=== PATIENT | female | born 1970 | race Caucasian/White ===

== ENCOUNTER 2024-11-30 05:17 | Inpatient (IN) | payer BC, SELFPAY ==
[2024-11-29 22:47] VITALS: BP 117/83
[2024-11-29 23:49] VITALS: BP 138/79
[2024-11-30] VITALS (13 sets, daily range): BP systolic 98–112; BP diastolic 59–72; BMI 30.1
[2024-11-30 00:04] LABS: % Basophils 0.3 % (0-2); % Eosinophils 0.3 % (0-6); % Lymphocytes 16.2 % (20.5-51.1); % Neutrophils 74.2 % (42.2-75.2); Absolute Lymphocytes 0.6 10^3/uL (1.2-3.4); Absolute Monocytes 0.3 10^3/uL (0.1-0.6); Absolute Neutrophils 2.7 10^3/uL (1.4-6.5); Hematocrit 38.5 % (37.0-47.0); Hemoglobin 13.3 g/dL (12.0-16.0); Mean Corp Hgb Conc. 34.5 g/dL (33.0-37.0); Mean Corpuscular Hgb 31.9 pg (27.0-31.0); Mean Corpuscular Volume 92.3 fL (81.0-99.0); Mean Platelet Volume 10.9 fL (7.4-10.4); Nucleated Red Blood Cells % 0 %; Platelet Count 119 10^3/uL (130-400); Red Blood Cell Count 4.17 10^6/uL (4.20-5.40); Red Cell Dist. Width 12.2 % (11.5-14.5); White Blood Cell Count 3.6 10^3/uL (4.8-10.8)
[2024-11-30] MEDS: ZOFRAN 4 MG IV ×3 (00:10→08:08)
[2024-11-30] MEDS: TORADOL 15 MG IV ×3 (00:10→09:42)
[2024-11-30 00:33] LABS: ALT (SGPT) 23 U/L (0-35); AST (SGOT) 37 U/L (14-36); Albumin 4.2 g/dl (3.5-5.0); Alkaline Phosphatase 117 U/L (38-126); Blood Urea Nitrogen 12 mg/dl (7-17); Calcium 9.8 mg/dl (8.4-10.2); Carbon Dioxide 18 mmol/L (22-30); Chloride 102 mmol/L (98-107); Glucose 157 mg/dl (70-99); Lipase 100 U/L (23-300); Potassium 3.8 mmol/L (3.5-5.1); Sodium 132 mmol/L (135-145); Total Bilirubin 0.6 mg/dl (0.2-1.3); Total Protein 6.9 g/dl (6.3-8.2); eGFR > 60.00
--- NOTE | 2024-11-30 01:47 | ED.GENMED ---
History of Present Illness
<David Guerra, DO - Last Filed: 11/30/24 02:56>
General
Chief Complaint: Abdominal Pain
Source: patient and spouse
Exam Limitations: none
Time Seen by Provider: 11/29/24 23:46
Nursing documentation reviewed up to this point in time: agreed with
History of Present Illness
History of Present Illness:
54-year-old female presents emergency room due to sudden onset of right abdominal pain and vomiting. She denies diarrhea. She states her family has the flu. She did not take any medications for this.
Past History
<David Guerra, DO - Last Filed: 11/30/24 02:56>
Past History
ED Past Medical History: Other (Pacemaker, congenital AV node)
ED Past Surgical History: Cardiac (Multiple cardiac ablations, pacemaker)
Social History
Tobacco: Non-smoker
Alcohol: None
Drug: None
Personal:
Living: with family
Employment: Employed
Review of Systems
<David Guerra, DO - Last Filed: 11/30/24 02:56>
Review of Systems
Allergies reviewed?: Yes
All Other Systems: Not applicable
Constitutional: Reports no symptoms
EENT: Reports no symptoms
Respiratory: Reports no symptoms
Cardiac: Reports no symptoms
ABD/GI: Reports abdominal pain, nausea and vomiting
: Reports no symptoms
Musculoskeletal: Reports no symptoms
Skin: Reports no symptoms
Neurological: Reports no symptoms
Endocrine: Reports no symptoms
Hematologic/Lymphatic: Reports no symptoms
Psychiatric: Reports no symptoms
Phy Exam
<David Guerra, DO - Last Filed: 11/30/24 02:56>
Physical Exam
Physical Exam:
Physical Exam
General: Afebrile, appears uncomfortable
Neck: supple. no meningeal signs. normal posterior pharynx
Heart: s1/s2 regular rate and rhythm, no murmur. equal radial
pulses.
HEENT: Pupils equal round reactive to light, EOMI
Lungs: no acute respiratory distress. clear bilaterally
Abdomen: normal bowel sounds. not tender. no CVAT
Neuro: alert and oriented. no focal neurological deficits cranial nerves II through XII intact
Skin: no rash
Psychiatric: well kept. interactive and cooperative
Extremities: no edema. no calf tenderness. negative homans. good distal pulses
Course
<David Guerra, DO - Last Filed: 11/30/24 02:56>
Orders/Labs/Results
Orders:
Orders
11/29/24 23:49
Complete Blood Count/With Diff Urgent
Comprehensive Metabolic Panel Urgent
Lipase Urgent
11/30/24 00:04
Ketorolac [Toradol] 15 mg IV NOW STA
11/30/24 00:05
CT Abd/pel Without Iv Or Oral Urgent
Comment:
Reason For Exam: right flank pain
Ondansetron Injectable [Zofran] 4 mg IV NOW STA
11/30/24 02:28
Ketorolac [Toradol] 15 mg .ROUTE .STK-MED ONE
11/30/24 02:29
Ketorolac [Toradol] 15 mg IV NOW STA
11/30/24 02:51
Morphine Sulfate 4 mg .ROUTE .STK-MED ONE
Ondansetron Injectable [Zofran] 4 mg .ROUTE .STK-MED ONE
Ondansetron Injectable [Zofran] 4 mg IV NOW STA
11/30/24 02:52
Morphine Sulfate 4 mg IV NOW STA
Morphine Sulfate 4 mg IV NOW STA
Ondansetron Injectable [Zofran] 4 mg IV NOW STA
11/30/24 02:54
Urinalysis Reflex To Culture Urgent
Date Specimen was Collected: 11/30/24
Time Specimen was Collected: 00:30
Urine Microscopic Reflex Cult Urgent
Urine Culture Urgent
SHAD Source: U
Specimen Description:
Date Specimen was Collected: 11/30/24
Time Specimen was Collected: 00:30
11/30/24 04:00
Flush (0.9% Sodium Chloride) [Flush (Nss)] See Dose Instructions IV PER PROTOCOL
11/30/24 04:46
Admit/Transfer Patient As Directed
Co-Sign Provider:
Level of Care: Inpatient admission
Assign to:: Medical/Surgical
Physician / Group: hospitalist
Diagnosis: ureterolithiasis
Reason for Hospitalization: ureterolithiasis, 4 stones in distal right ureter
Expected length of stay greater than two midnights?: Yes
ELOS- Estimated Length of Stay in days: 2
I certify the patient meets the requirements for IP care: Yes
11/30/24 04:47
Code Status As Directed
Resuscitation Status: Full Code
PRN Pain Medication Management As Directed
May give lesser potent ordered pain med per pt: Yes
preference::
Protocol:: Medication orders for pain may be administered in a
manner that supports deferring to patient preference
when the pt is:
- Requesting an ordered lesser potent pain medication.
Least to most potent pain medications are defined
as: acetaminophen < NSAID < tramadol < opioids
(morphine, oxycodone, hydromorphone).
- Requesting a lesser dose of the same medication IF
ORDERED.
- Requesting a less intrusive route of administration
if both routes are prescribed by the provider (PO <
IV).
11/30/24 05:27
0.9% Sodium Chloride 1000 ml [Nss] 1,000 ml IV 125 mls/hr
Acetaminophen [Tylenol] 650 mg PO Q4HPRN PRN
Bisacodyl [Dulcolax] 10 mg RECTAL [id number] PRN
Docusate W/Senna [Senokot-S] 1 tablet PO BIDPRN PRN
Ketorolac [Toradol] 15 mg IV Q6HPRN PRN
Morphine Sulfate 2 mg IV Q4HPRN PRN
Ondansetron Injectable [Zofran] 4 mg IV Q6HPRN PRN
Polyethylene Glycol Powder [Miralax] 17 grams PO DAILYPRN PRN
11/30/24 05:27
UROLOGY CONSULT Routine
Consulting Provider: Kishore Calix
Was physician already notified: Yes
Comment: right ureterolithiasis
Activity As Directed
Activity Level: With Assistance
Pneumatic Compression Sleeves As Directed
Type: Knee high
Strain Urine As Directed
Vital Signs As Directed
Frequency: Per unit guidelines
DX Deep Vein Thrombosis Video Routine
11/30/24 Breakfast
NPO
Allow oral meds: Yes
Allow clear liquids: Sips of Clears
NPO with Ice Chips: Yes
11/30/24 06:29
Basic Metabolic Panel IN AM
11/30/24 08:00
Spironolactone [Aldactone] 12.5 mg PO DAILY
11/30/24 22:00
Duloxetine Delayed Release [Cymbalta Delayed Release] 20 mg PO HS
Abnormal Lab Results
11/29/24 11/30/24
23:49 02:54
WBC 3.6 L 10^3/uL
(4.8-10.8)
RBC 4.17 L 10^6/uL
(4.20-5.40)
MCH 31.9 H pg
(27.0-31.0)
Plt Count 119 L 10^3/uL
(130-400)
MPV 10.9 H fL
(7.4-10.4)
Absolute Lymphs (auto) 0.6 L 10^3/uL
(1.2-3.4)
Lymphocytes % 16.2 L %
(20.5-51.1)
Sodium 132 L mmol/L
(135-145)
Carbon Dioxide 18 L mmol/L
(22-30)
Glucose 157 H mg/dl
(70-99)
AST 37 H U/L
(14-36)
Urine Ketones 3+ A
(Negative)
Ur Occult Blood Reflex 2+ A
(Negative)
Leukocyte Esterase Rfl 3+ A
(Negative)
Urine RBC 3-6 A /HPF
(0-2)
Urine WBC (Reflex) 60-70 A /HPF
(0-5)
Urine Bacteria (Reflex) Moderate A
(Negative)
Urine Albumin (Reflex) 2+ A
(Neg - Trace)
11/29/24 23:49
11/29/24 23:49
Vital Signs
Initial and Last Documented VS:
Initial Vital Signs
Temp Pulse Resp BP Pulse Ox
97.7 F 85 30 117/83 99
11/29/24 22:47 11/29/24 22:47 11/29/24 22:47 11/29/24 22:47 11/29/24 22:47
Last Documented Vital Signs
Temp Pulse Resp BP Pulse Ox
97.7 F 85 30 110/59 96
11/29/24 22:47 11/29/24 22:47 11/29/24 22:47 11/30/24 05:00 11/30/24 05:15
Elmiralt;Marlys Vu, DO - Last Filed: 11/30/24 06:59>
Orders/Labs/Results
Orders:
Orders
11/29/24 23:49
Complete Blood Count/With Diff Urgent
Comprehensive Metabolic Panel Urgent
Lipase Urgent
11/30/24 00:04
Ketorolac [Toradol] 15 mg IV NOW STA
11/30/24 00:05
CT Abd/pel Without Iv Or Oral Urgent
Comment:
Reason For Exam: right flank pain
Ondansetron Injectable [Zofran] 4 mg IV NOW STA
11/30/24 02:28
Ketorolac [Toradol] 15 mg .ROUTE .STK-MED ONE
11/30/24 02:29
Ketorolac [Toradol] 15 mg IV NOW STA
11/30/24 02:51
Morphine Sulfate 4 mg .ROUTE .STK-MED ONE
Ondansetron Injectable [Zofran] 4 mg .ROUTE .STK-MED ONE
Ondansetron Injectable [Zofran] 4 mg IV NOW STA
11/30/24 02:52
Morphine Sulfate 4 mg IV NOW STA
Morphine Sulfate 4 mg IV NOW STA
Ondansetron Injectable [Zofran] 4 mg IV NOW STA
11/30/24 02:54
Urinalysis Reflex To Culture Urgent
Date Specimen was Collected: 11/30/24
Time Specimen was Collected: 00:30
Urine Microscopic Reflex Cult Urgent
Urine Culture Urgent
SHAD Source: U
Specimen Description:
Date Specimen was Collected: 11/30/24
Time Specimen was Collected: 00:30
11/30/24 04:00
Flush (0.9% Sodium Chloride) [Flush (Nss)] See Dose Instructions IV PER PROTOCOL
11/30/24 04:46
Admit/Transfer Patient As Directed
Co-Sign Provider:
Level of Care: Inpatient admission
Assign to:: Medical/Surgical
Physician / Group: hospitalist
Diagnosis: ureterolithiasis
Reason for Hospitalization: ureterolithiasis, 4 stones in distal right ureter
Expected length of stay greater than two midnights?: Yes
ELOS- Estimated Length of Stay in days: 2
I certify the patient meets the requirements for IP care: Yes
11/30/24 04:47
Code Status As Directed
Resuscitation Status: Full Code
PRN Pain Medication Management As Directed
May give lesser potent ordered pain med per pt: Yes
preference::
Protocol:: Medication orders for pain may be administered in a
manner that supports deferring to patient preference
when the pt is:
- Requesting an ordered lesser potent pain medication.
Least to most potent pain medications are defined
as: acetaminophen < NSAID < tramadol < opioids
(morphine, oxycodone, hydromorphone).
- Requesting a lesser dose of the same medication IF
ORDERED.
- Requesting a less intrusive route of administration
if both routes are prescribed by the provider (PO <
IV).
11/30/24 05:27
0.9% Sodium Chloride 1000 ml [Nss] 1,000 ml IV 125 mls/hr
Acetaminophen [Tylenol] 650 mg PO Q4HPRN PRN
Bisacodyl [Dulcolax] 10 mg RECTAL [id number] PRN
Docusate W/Senna [Senokot-S] 1 tablet PO BIDPRN PRN
Ketorolac [Toradol] 15 mg IV Q6HPRN PRN
Morphine Sulfate 2 mg IV Q4HPRN PRN
Ondansetron Injectable [Zofran] 4 mg IV Q6HPRN PRN
Polyethylene Glycol Powder [Miralax] 17 grams PO DAILYPRN PRN
11/30/24 05:27
UROLOGY CONSULT Routine
Consulting Provider: Kishore Calix
Was physician already notified: Yes
Comment: right ureterolithiasis
Activity As Directed
Activity Level: With Assistance
Pneumatic Compression Sleeves As Directed
Type: Knee high
Strain Urine As Directed
Vital Signs As Directed
Frequency: Per unit guidelines
DX Deep Vein Thrombosis Video Routine
11/30/24 Breakfast
NPO
Allow oral meds: Yes
Allow clear liquids: Sips of Clears
NPO with Ice Chips: Yes
11/30/24 06:29
Basic Metabolic Panel IN AM
11/30/24 08:00
Spironolactone [Aldactone] 12.5 mg PO DAILY
11/30/24 22:00
Duloxetine Delayed Release [Cymbalta Delayed Release] 20 mg PO HS
Abnormal Lab Results
11/29/24 11/30/24
23:49 02:54
WBC 3.6 L 10^3/uL
(4.8-10.8)
RBC 4.17 L 10^6/uL
(4.20-5.40)
MCH 31.9 H pg
(27.0-31.0)
Plt Count 119 L 10^3/uL
(130-400)
MPV 10.9 H fL
(7.4-10.4)
Absolute Lymphs (auto) 0.6 L 10^3/uL
(1.2-3.4)
Lymphocytes % 16.2 L %
(20.5-51.1)
Sodium 132 L mmol/L
(135-145)
Carbon Dioxide 18 L mmol/L
(22-30)
Glucose 157 H mg/dl
(70-99)
AST 37 H U/L
(14-36)
Urine Ketones 3+ A
(Negative)
Ur Occult Blood Reflex 2+ A
(Negative)
Leukocyte Esterase Rfl 3+ A
(Negative)
Urine RBC 3-6 A /HPF
(0-2)
Urine WBC (Reflex) 60-70 A /HPF
(0-5)
Urine Bacteria (Reflex) Moderate A
(Negative)
Urine Albumin (Reflex) 2+ A
(Neg - Trace)
11/29/24 23:49
11/29/24 23:49
Vital Signs
Initial and Last Documented VS:
Initial Vital Signs
Temp Pulse Resp BP Pulse Ox
97.7 F 85 30 117/83 99
11/29/24 22:47 11/29/24 22:47 11/29/24 22:47 11/29/24 22:47 11/29/24 22:47
Last Documented Vital Signs
Temp Pulse Resp BP Pulse Ox
97.7 F 85 30 110/59 96
11/29/24 22:47 11/29/24 22:47 11/29/24 22:47 11/30/24 05:00 11/30/24 05:15
<DO Tian Peck Last Filed: 11/30/24 02:56>
MDM/Problems Addressed
Differential Diagnosis Includes:
UTI, kidney stones
MDM/Problems Addressed:
54-year-old female with right distal ureteral calculi. [address] scan. Intractable pain despite multiple doses of Toradol and morphine. Admit to hospitalist with urology consult.
<DO Tian Peck Last Filed: 11/30/24 02:56>
*Radiology
Radiology exam reviewed: radiology read reviewed (CT abdomen pelvis 4stones in right distal ureter)
*Pulse Oximetry
Patient hypoxic: no
*Critical Care Note
Total Time (30-74mins, 75-104mins- exclusive of procedures): Not Applicable
<DO Tina Peck Last Filed: 11/30/24 02:56>
Patient Management
Social determinants of health affecting care: Living situation
Discussion with other providers: Hospitalist and Nurse Rn Bsn (Urology)
Escalation/DeEscalation of care consider admission/obs:
Admit indicated
<Marlys R. Vu, DO - Last Filed: 11/30/24 06:59>
Update Note
Update Note:
06:45
Urinalysis concerning for UTI showing moderate bacteria, 60-70 WBCs. This is however a contaminated specimen with greater than 30 squamous epithelial cells. Urine culture is pending.
It is reassuring that white blood cell count is normal and patient has been afebrile. However with ureteric stone, concern for potential infected stone thus will initiate IV antibiotics.
History of anaphylaxis with penicillins thus will initiate IV Levaquin.
ED Attending Note
<David Guerra, DO - Last Filed: 11/30/24 02:56>
-
Portions of this chart may have been created with voice recognition software.� Occasional wrong word or��sound alike� substitutions may have occurred due to the inherent limitations of voice recognition software.
Discharge Plan
Departure
Patient Disposition: Admit
Date of Disposition: 11/30/24
Time of Disposition: 02:55
Admit to: Med/Surg
Presentation/result/management discussed w/ accepting MD/DO: Hospitalist
Patient with high blood pressure during this ER visit?: No
Condition: Fair
Discharge Problem:
Calculus of right ureter
Interventions
Interventions:
*Risk Screen - Suicide Last Done: 11/30/24 00:31
*Neglect/Abuse Screening Last Done: 11/30/24 00:31
ED- Fall Risk Assessment Last Done: 11/30/24 00:31
QR-Cssjox-Oearcneany Assessment Last Done: 11/30/24 00:31
--- NOTE | 2024-11-30 01:48 | EDRN ---
Patient is sleeping when observed, call santana in reach.
[2024-11-30] MEDS: MORPHINE SULFATE 4 MG IV ×2 (02:52→05:35)
[2024-11-30 03:29] LABS: Urine Albumin 2+ (Neg - Trace); Urine Bilirubin Negative (Negative); Urine Character Slightly Cloudy (Clear); Urine Color Yellow; Urine Glucose Negative (Negative); Urine Ketone 3+ (Negative); Urine Leukocyte 3+ (Negative); Urine Nitrite Negative (Negative); Urine Occult Blood 2+ (Negative); Urine Urobilinogen Negative (Neg - 1+)
--- NOTE | 2024-11-30 04:50 | HPS.HSE ---
Family Physician
-
Family Physician: Karena Haywood MD
Chief Complaint
-
Flank and abdominal pain
History of Present Illness
This is a 54-year-old with past medical history significant for restless leg syndrome, chronic acne presenting to the emergency department with acute onset of flank pain.
Patient reported that she was trying to sleep when she arose with severe right-sided flank pain radiating to the right lower quadrant and inguinal region. She had a nonbilious and nonbloody emesis. The pain was not subsiding at all and she said
come to the emergency department for evaluation. She denied having any fevers or chills. She denied any recent episode of urinary tract symptoms. She denies any recent urinary instrumentation. Patient denies any prior history of kidney stones.
She denies hematuria. She denies any urological congenital abnormalities.
In the emergency department she was afebrile, blood pressure was 110/71 with pulse of 85. CBC was unremarkable with a normal white count normal hemoglobin and normal platelets. Electrolytes BUN/creatinine were all within the normal range. UA had
positive leukocyte esterase negative nitrites no bacteria with WBCs pending.
Medical History
Past Medical History
Past Medical History: Reports Other (Restless leg syndrome)
Past Surgical History: Reports None
Social History
Tobacco: Non-smoker
Alcohol: Former
Drug: None
Personal:
Living: With Family
Employment: Employed
Family History
Family History: Not pertinent
Allergies / Home Medications
Allergies reflects when Allergies were last updated in [facility].
Home Medications with original date entered in [facility]
Allergy/Medication List:
Allergies
Allergy/AdvReac Type Severity Reaction Status Date / Time
Penicillins Allergy Severe Anaphylaxis Verified 11/29/24 22:50
latex Allergy Unknown Rash Verified 11/29/24 22:50
Home Medications
nirmatrelvir 300 mg (150 mg x2)-ritonavir 100 mg tablet,dose pack (Paxlovid) See Rx Instructions PO .COMPLEX #30 ea 10/07/23
Spironolactone 12.5 mg tablet, 12.5 mg p.o. daily
Duloxetine 30 mg tablet, 30 mg p.o. at bedtime
Review of Systems
-
Constitutional: Reports No Symptoms
EENT: Reports No Symptoms
Respiratory: Reports No Symptoms
Cardiac: Reports No Symptoms
Abdomen/GI: Reports Abdominal Pain
: Reports Flank Pain
Musculoskeletal: Reports No Symptoms
Skin: Reports No Symptoms
Neurological: Reports No Symptoms
Endocrine: Reports No Symptoms
Hematologic/Lymphatic: Reports No Symptoms
Psych: Reports No Symptoms
Physical Exam
Vital Signs
Vital Signs
Temp Pulse Resp BP Pulse Ox
97.7 F 85 30 110/71 91
11/29/24 22:47 11/29/24 22:47 11/29/24 22:47 11/30/24 03:00 11/30/24 03:15
Physical Exam
General: Well Developed, Well Nourished and No Apparent Distress
HEENT: NormoCephalic, Anicteric, Moist mucous membranes and Atraumatic
Respiratory: Clear
Cardiac: S1/S2 and Regular Rhythm
Breast: Deferred by me
GI: Soft, Non Tender, Non Distended and Normal Bowel Sounds
Genito-urinary: Deferred by me
Musculoskeletal: No Clubbing, No Cyanosis and No Edema
Skin: Warm and Dry
Neuro: AO x 3 and Nonfocal/grossly intact
Hematologic/Lymphatic: No Lymphadenopathy
Psych: Calm
Laboratory Results
-
11/29/24 23:49
11/29/24 23:49
Laboratory Results
Total Bilirubin 0.6 mg/dl (0.2-1.3) 11/29/24 23:49
AST 37 U/L (14-36) H 11/29/24 23:49
ALT 23 U/L (0-35) 11/29/24 23:49
Alkaline Phosphatase 117 U/L (38-126) 11/29/24 23:49
Lipase 100 U/L (23-300) 11/29/24 23:49
Data Reviewed
-
CT Scan: Report Reviewed by me
Lab Data: Labs Reviewed by me
Old Records: Reviewed
Impression/Plan
-
IMPRESSION:
54-year-old with right-sided ureterolithiasis.
PLAN:
Kidney stone - there are 4 3mm stones in the distal right ureter. No hydronephrosis. No signs of acute infection. Renal function is normal. Pain.
- admit to med surg
- NPO for now
- IV fluids, strain urine and tamsulosin
- pain control with toradol and morphine prn
- no thinners
- Urology consulted, requested admit to hospitalist service
DVT PPX - SCD
Code status - Full code
[2024-11-30 04:56] LABS: Urine Mucus Many; Urine Squamous Cell >30 /LPF (Few)
[2024-11-30 05:01] LABS: Urine White Cell 60-70 /HPF (0-5)
[2024-11-30 05:02] LABS: Urine Bacteria Moderate (Negative)
[2024-11-30] MEDS: NSS 1000 IV ×2 (05:36→15:31)
[2024-11-30 07:45] LABS: Blood Urea Nitrogen 15 mg/dl (7-17); Calcium 8.8 mg/dl (8.4-10.2); Carbon Dioxide 22 mmol/L (22-30); Chloride 103 mmol/L (98-107); Estimated Creatinine Clearance 81 ml/min; Glucose 102 mg/dl (70-99); Potassium 4.8 mmol/L (3.5-5.1); Sodium 135 mmol/L (135-145); eGFR > 60.00
[2024-11-30] MEDS: MORPHINE SULFATE 2 MG IV ×2 (07:47→12:04)
--- NOTE | 2024-11-30 07:59 | W.PN.URO.CBU ---
Today's Communication / Plan
-
to op room later today
Assessment / Plan
-
intracatble pain due to multiple rt dista urteral stones for attempt at laser and stenting
Diagnosis
-
Date of Service: November 30, 2024
-
Patient Diagnosis:
multiple 3 or more 3 - 4 mm stones distal rt ureter with n/v intractable pain no fevr chills
Post Op Day:
Subjective
-
severe pain n/v
Objective
-
Vital Signs
Temp Pulse Resp BP Pulse Ox
97.7 F 85 30 102/72 98
11/29/24 22:47 11/29/24 22:47 11/29/24 22:47 11/30/24 06:00 11/30/24 06:45
Laboratory Results
11/29/24 23:49
11/30/24 06:29
Review of Systems
-
Abdomen/GI: Nausea and Vomiting
: Flank Pain
Physical Exam
-
General - well developed, well nourished, no acute distress
Chest - clear bilaterally
Abdomen - soft, non-tender, positive bowel sounds, no CVAT, no incisional pain or distention
Genitalia - normal
Rectal - normal
Skin - warm & dry with no rash
Neuro - AOx3, no motor deficits
Extremities - no clubbing, no cyanosis, no edema
Incision - clean, dry
Dressing - clean, dry, intact
Counseling
-
for oroom
Care Review
Data Reviewed
Discussed with: Hospitalist and Nursing
CT Scan: Image Pers Reviewed
[2024-11-30] MEDS: LEVAQUIN 100 IV (08:06)
--- NOTE | 2024-11-30 10:52 | W.PN.UPDATE ---
Update Note
Progress Note Update
Seen and examined independent of pulmonary physician. Nonbillable note.
States of significant flank pain. Received pain medication earlier.
General: pain,
HEENT: NormoCephalic, Anicteric, Moist mucous membranes and Atraumatic
Respiratory: Clear
Cardiac: S1/S2 and Regular Rhythm
Breast: Deferred by me
GI: Soft, Non Tender, Non Distended and Normal Bowel Sounds
Genito-urinary: Deferred by me
Musculoskeletal: No Clubbing, No Cyanosis and No Edema
Skin: Warm and Dry
Neuro: AO x 3 and Nonfocal/grossly intact
Hematologic/Lymphatic: No Lymphadenopathy
Psych: Calm
IMPRESSION:
54-year-old with right-sided ureterolithiasis.
PLAN:
Mild right hydronephrosis and mild right hydroureter.
Multiple renal stones within the right distal ureter
Large bilateral renal cysts.
- NPO for now
- IV fluids, strain urine and tamsulosin
- pain control with toradol and morphine prn
- no thinners
- Urology consulted OR today for laser lithotripsy and ureteral stenting
- UA with increased squamous cell. Follow-up on the culture data. Received Levaquin in the ER. If urine culture positive start antibiotics
Congenital AV node
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
RLS
-Cont cymbalta/pramipexole
DVT PPX - SCD
Code status - Full code
--- NOTE | 2024-11-30 12:53 | PTCARENOTE ---
Pt sent to OR at aprox 1240. Report given to Marlys. Pt has been sick with 'flu' she says for last week. I recommended flu swab be done prior to admission to floor. Pt sent with mask on.
--- NOTE | 2024-11-30 14:32 | W.IMMPOSTOP ---
Surgical Immed Post Op Note
-
Primary Surgeon:
laurel
Assisting Surgeon:
Pre-op Diagnosis:
right ureteral stones
Post-op Diagnosis:
same
Procedure Performed:
cysto, right ureteroscopy, laser litho and stone extraction, stent
Anesthesia Type:
gen
Specimen / Cultures:
stone
Estimated Blood Loss:
2cc
Complications:
none
Operative Findings:
multiple right ureteral stones
fragmented and extracted
stent placed
to pacu in stable condition
continue levaquin- await ucx
also will test for flu- pt believes she has this
[2024-11-30] MEDS: DETROL LA 4 MG PO (15:13)
[2024-11-30] MEDS: Pyridium 100 MG PO ×2 (15:14→23:08)
[2024-11-30] MEDS: TYLENOL 650 MG PO (19:44)
[2024-11-30] MEDS: TAMIFLU 75 MG PO (20:51)
[2024-11-30] MEDS: CYMBALTA DELAYED RELEASE 20 MG PO (20:51)
[2024-11-30] MEDS: MIRAPEX, GENERIC 1.5 MG PO (23:08)
[2024-12-01] MEDS: NSS 1000 IV ×4 (00:24→22:51)
[2024-12-01 03:30] VITALS: BP 95/58
[2024-12-01] MEDS: TYLENOL 650 MG PO (03:56)
[2024-12-01] MEDS: TORADOL 15 MG IV ×2 (06:33→12:35)
[2024-12-01 07:00] VITALS: BP 102/64
[2024-12-01] MEDS: Pyridium 100 MG PO ×3 (08:13→22:51)
[2024-12-01] MEDS: LEVAQUIN 100 IV (08:13)
[2024-12-01] MEDS: DETROL LA 4 MG PO (08:13)
[2024-12-01] MEDS: TAMIFLU 75 MG PO ×2 (08:14→21:18)
[2024-12-01 08:48] LABS: Blood Urea Nitrogen 16 mg/dl (7-17); Calcium 8.3 mg/dl (8.4-10.2); Carbon Dioxide 22 mmol/L (22-30); Chloride 106 mmol/L (98-107); Estimated Creatinine Clearance 104 ml/min; Glucose 98 mg/dl (70-99); Potassium 4.1 mmol/L (3.5-5.1); Sodium 137 mmol/L (135-145); eGFR > 60.00
[2024-12-01 10:27] LABS: % Immature Granulocytes 0.4 % (0-0.5); % Lymphocytes 30.1 % (20.5-51.1); % Monocytes 12.3 % (1.7-9.3); % Neutrophils 57.2 % (42.2-75.2); Absolute Lymphocytes 0.8 10^3/uL (1.2-3.4); Absolute Monocytes 0.3 10^3/uL (0.1-0.6); Absolute Neutrophils 1.5 10^3/uL (1.4-6.5); Hematocrit 31.9 % (37.0-47.0); Hemoglobin 10.8 g/dL (12.0-16.0); Mean Corp Hgb Conc. 33.9 g/dL (33.0-37.0); Mean Corpuscular Hgb 32.4 pg (27.0-31.0); Mean Corpuscular Volume 95.8 fL (81.0-99.0); Mean Platelet Volume 10.8 fL (7.4-10.4); Nucleated Red Blood Cells % 0 %; Platelet Count 104 10^3/uL (130-400); Red Blood Cell Count 3.33 10^6/uL (4.20-5.40); Red Cell Dist. Width 12.5 % (11.5-14.5); White Blood Cell Count 2.7 10^3/uL (4.8-10.8)
--- NOTE | 2024-12-01 10:32 | W.PN.HOSP.TC ---
Addendum entered and electronically signed by Franky Ga MD 12/01/24 13:00:
Per urology will require antibiotics on discharge for 5 days.
Original Note:
Today's Communication/Plan
-
Continue with IV fluid
Continue with antibiotic
Encourage increase p.o. intake
Continue with Tamiflu
Assessment / Plan
Assessment / Plan
IMPRESSION:
54-year-old with right-sided ureterolithiasis.
PLAN:
Mild right hydronephrosis and mild right hydroureter.
Multiple renal stones within the right distal ureter
Large bilateral renal cysts.
Family history of renal stone.
- IV fluids,
- pain control with toradol and morphine prn
- no thinners
- Status post cystoscopy with finding of multiple right ureteral stones which were fragmented and extracted. Right ureteral stent placement. Patient will require outpatient urology follow-up for ureteral stent removal.
- Follow-up on urine culture data. Follow-up on the renal stone results
- Discussed with urology and recommending patient will need to be continued on antibiotics upon discharge.
Influenza B positive
-Severely symptomatic
-Significant decreased p.o. intake
-Continue with IV fluids
-Cont on Tamiflu
-Symptomatic management
Congenital AV node
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
RLS
-Cont cymbalta/pramipexole
DVT PPX - SCD/as with hematuria
Code status - Full code
Discussed with patient spouse at bedside in detail
Anticipated Discharge: Within 24 hours
Subjective/Interval History
-
Date of Service: December 01, 2024
States significantly decreased appetite
States of severe flank pain
Remains with hematuria and urinary urgency and frequency
States of diffuse body ache
Objective Data
-
Labs:
Laboratory Results
03/05/25
07:25
WBC 2.7 L
Hgb 10.8 L
Hct 31.9 L
Plt Count 104 L
Sodium 137
Potassium 4.1
Chloride 106
Carbon Dioxide 22
BUN 16
Creatinine 0.7
Glucose 98
Calcium 8.3 L
Vital Signs:
Vital Signs
Temp Pulse Resp BP Pulse Ox
97.5 F 62 17 102/64 95
12/01/24 07:00 12/01/24 07:00 12/01/24 07:00 12/01/24 07:00 12/01/24 07:00
I&O
11/30/24 12/01/24 12/02/24
06:59 06:59 06:59
Intake Total 3065 / 3065
Balance 3065 / 3065
Physical Exam
-
General: Well Developed and No Apparent Distress
HEENT: Normocephalic, Atraumatic and Moist Mucous Membranes
Respiratory: Clear to Auscultation
Cardiac: Regular Rhythm and S1/S2; Negative Murmur, Rub or Gallop
GI: Soft, Nontender, Nondistended and Normal Bowel Sounds; Negative Organomegaly
Rectal: Deferred by Provider
Musculoskeletal: No Clubbing, No Cyanosis and No Edema
Skin: Other (Diffuse body tattoos noted); Negative Rash
Neuro: Awake, Alert, Oriented, AO x 3 and Nonfocal/Grossly Intact
Psych: Calm
Data Reviewed
-
Total Time Spent with Patient (in minutes): 55
--- NOTE | 2024-12-01 12:27 | CM ---
CM reviewed chart, patient seen bedside with significant other, initial assessment completed. Patient Flu positive. Patient resides with significant other in one story home, a few steps to enter. Patient is independent with ADLS/IADLS, denies DME,
VN/SNF. Patient confirms PCP Karena Morales, pharmacy [facility], confirms prescription coverage. CM will continue to follow for all discharge planning needs.
Plan; home with spouse, no needs anticipated.
--- NOTE | 2024-12-01 13:28 | W.PN.URO.CBU ---
Today's Communication / Plan
-
home
Assessment / Plan
-
intracatble pain gone stented ans stones out
Diagnosis
-
Date of Service: December 01, 2024
-
Patient Diagnosis:
Post Op Day:
Patient Diagnosis:
multiple 3 or more 3 - 4 mm stones distal rt ureter with n/v intractable pain no fevr chills
Post Op Day: 1
Subjective
-
much better
Objective
-
Vital Signs
Temp Pulse Resp BP Pulse Ox
97.5 F 62 17 102/64 95
12/01/24 07:00 12/01/24 07:00 12/01/24 07:00 12/01/24 07:00 12/01/24 07:00
Intake and Output
11/30/24 12/01/24 12/02/24
06:59 06:59 06:59
Intake Total 3065 / 3065
Balance 3065 / 3065
Intake:
Oral fluids 1440 / 1440
IV fluids (Total) 1625 / 1625
NORMOSOL 125 / 125
Other:
Number of approximated MODERATE 2
amounts of urine
Number of approximated LARGE 2
amounts of urine
Laboratory Results
12/01/24 07:25
12/01/24 07:25
Review of Systems
-
: Frequency
Physical Exam
-
General - well developed, well nourished, no acute distress
Chest - clear bilaterally
Abdomen - soft, non-tender, positive bowel sounds, no CVAT, no incisional pain or distention
Genitalia - normal
Rectal - normal
Skin - warm & dry with no rash
Neuro - AOx3, no motor deficits
Extremities - no clubbing, no cyanosis, no edema
Incision - clean, dry
Dressing - clean, dry, intact
Counseling
-
home
Care Review
Data Reviewed
Discussed with: Hospitalist, Nursing and Family
[2024-12-01 15:00] VITALS: BP 115/68
[2024-12-01] MEDS: MIRAPEX, GENERIC 1.5 MG PO (17:43)
[2024-12-01] MEDS: CYMBALTA DELAYED RELEASE 20 MG PO (21:18)
[2024-12-01 23:07] VITALS: BP 91/53
[2024-12-02 07:00] VITALS: BP 117/74
[2024-12-02 07:50] LABS: % Basophils 0.3 % (0-2); % Eosinophils 0.9 % (0-6); % Lymphocytes 38.6 % (20.5-51.1); % Monocytes 11.3 % (1.7-9.3); % Neutrophils 48.9 % (42.2-75.2); Absolute Lymphocytes 1.3 10^3/uL (1.2-3.4); Absolute Monocytes 0.4 10^3/uL (0.1-0.6); Absolute Neutrophils 1.7 10^3/uL (1.4-6.5); Hematocrit 31.3 % (37.0-47.0); Hemoglobin 10.6 g/dL (12.0-16.0); Mean Corp Hgb Conc. 33.9 g/dL (33.0-37.0); Mean Corpuscular Hgb 32.2 pg (27.0-31.0); Mean Corpuscular Volume 95.1 fL (81.0-99.0); Mean Platelet Volume 10.8 fL (7.4-10.4); Nucleated Red Blood Cells % 0 %; Platelet Count 110 10^3/uL (130-400); Red Blood Cell Count 3.29 10^6/uL (4.20-5.40); Red Cell Dist. Width 12.6 % (11.5-14.5); White Blood Cell Count 3.5 10^3/uL (4.8-10.8)
[2024-12-02 08:25] LABS: Blood Urea Nitrogen 10 mg/dl (7-17); Calcium 8.2 mg/dl (8.4-10.2); Carbon Dioxide 23 mmol/L (22-30); Chloride 108 mmol/L (98-107); Estimated Creatinine Clearance 104 ml/min; Glucose 85 mg/dl (70-99); Potassium 3.6 mmol/L (3.5-5.1); Sodium 136 mmol/L (135-145); eGFR > 60.00
[2024-12-02] MEDS: LEVAQUIN 100 IV (08:50)
[2024-12-02] MEDS: DETROL LA 4 MG PO (08:51)
[2024-12-02] MEDS: TAMIFLU 75 MG PO (08:51)
[2024-12-02] MEDS: Pyridium 100 MG PO (08:51)
--- NOTE | 2024-12-02 10:14 | W.PN.HOSP.TC ---
Today's Communication/Plan
-
Monitor vital signs see plan
Continues to feel better
Subjective abx to oral
Continue Tamiflu
Discharge today
Time of discharge 37 minutes
Assessment / Plan
Assessment / Plan
IMPRESSION:
54-year-old with right-sided ureterolithiasis.
PLAN:
Mild right hydronephrosis and mild right hydroureter.
Multiple renal stones within the right distal ureter
Large bilateral renal cysts.
Family history of renal stone.
dc IV fluids
- pain control with toradol and morphine prn
- no thinners
- Status post cystoscopy with finding of multiple right ureteral stones which were fragmented and extracted. Right ureteral stent placement. Patient will require outpatient urology follow-up for ureteral stent removal.
- Follow-up on urine culture data. Follow-up on the renal stone results
- Discussed with urology and recommending patient will need to be continued on antibiotics upon discharge. 5 days total
Influenza B positive
-Severely symptomatic
-Significant decreased p.o. intake
-Cont on Tamiflu
-Symptomatic management
Congenital AV node
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
RLS
-Cont cymbalta/pramipexole
DVT PPX - SCD/as with hematuria
Code status - Full code
Discussed with patient spouse at bedside in detail
General: Well Developed and No Apparent Distress
HEENT: Normocephalic, Atraumatic and Moist Mucous Membranes
Respiratory: Clear to Auscultation
Cardiac: Regular Rhythm and S1/S2
GI: Soft, Nontender, Nondistended and Normal Bowel Sounds
Musculoskeletal: No Clubbing, No Cyanosis and No Edema
Skin: Other (Diffuse body tattoos noted)
Neuro: Awake, Alert, Oriented, AO x 3 and Nonfocal/Grossly Intact
Psych: Calm
Anticipated Discharge: Today
Subjective/Interval History
-
Date of Service: December 02, 2024
denies pain
Objective Data
-
Labs:
Laboratory Results
12/02/24
06:55
WBC 3.5 L
Hgb 10.6 L
Hct 31.3 L
Plt Count 110 L
Sodium 136
Potassium 3.6
Chloride 108 H
Carbon Dioxide 23
BUN 10
Creatinine 0.7
Glucose 85
Calcium 8.2 L
Vital Signs:
Vital Signs
Temp Pulse Resp BP Pulse Ox
98.1 F 61 20 117/74 98
12/02/24 07:00 12/02/24 07:00 12/02/24 07:00 12/02/24 07:00 12/02/24 07:00
I&O
12/01/24 12/02/24 12/03/24
06:59 06:59 06:59
Intake Total 3065 / 3065 240 / 240
Balance 3065 / 3065 240 / 240
--- NOTE | 2024-12-02 10:21 | W.DCSUMMARY ---
Discharge Summary
Discharge Data
Date of Admission: 11/30/24
Date of Discharge: 12/02/24
-
Pending Results: No
Hospital Course
54-year-old female with past medical history of congenital AV node, RLS came to the hospital with right sided ureteral lithiasis. Patient was seen by urology and she had multiple renal stones within the right distal ureter with mild right
hydroureter. Patient underwent cystoscopy with finding of multiple right ureteral stones which were fragmented and extracted. Patient also got right ureteral stent placement by urology. Urology instructed patient to follow-up with them closely
outpatient. Patient was also started on IV antibiotics initially which were later transitioned to p.o. Levaquin per urology recommendation prior to discharge. Patient was also found to have influenza B and was started on Tamiflu. Once patient
symptoms continue to improve, she was then discharged home with instructions to follow-up with all her physicians outpatient.
Discharge Plan
-
Patient Disposition: Home (Routine Discharge)
Discharge Diagnosis/Procedures: Mild right hydronephrosis and mild right hydroureter.
Multiple renal stones within the right distal ureter
Large bilateral renal cysts.
Status post cystoscopy with finding of multiple right ureteral stones which were fragmented and extracted. Right ureteral stent placement.
Influenza B positive
Condition: Fair
Diet: Regular
Activity: As tolerated
Referrals:
Kishore Calix MD [Active] - (call [facility] urology [phone] to schedule next phase treatment Expect frequency urgency blood in urine and rt flank discomfort until treatment plans are completed)
Karena Haywood MD [Family Provider] - in less than 1 week
Prescriptions:
New
tolterodine 4 mg Capsule,Extended Release 24hr
4 mg PO DAILY Qty: 7 0RF
phenazopyridine 100 mg Tablet
100 mg PO Q8 Qty: 9 0RF
oseltamivir 75 mg Capsule
75 mg PO BID Qty: 6 0RF
levofloxacin 500 mg tablet
500 mg PO DAILY Qty: 3 0RF
Continued
clonazepam 0.5 mg Tablet
0.5 mg PO HS
pramipexole 0.5 mg Tablet
1.5 mg PO HS
duloxetine [Cymbalta] 20 mg Capsule,Delayed Release(Dr/Ec)
20 mg PO HS
Wegovy 2.4 mg/0.75 mL Pen Injector
2.4 mg SC FR
Held
spironolactone 100 mg Tablet
100 mg PO HS
Hold Instructions: restart when BP >140/90
Discharge Orders:
Discharge Patient (As Directed); Ordered 12/02/24
Ordered By: Onur Jackson
Discharge Date and Time
Discharge Date/Time: 12/02/24 13:39
Print Language: EMIRATI
[2024-12-02 11:07] VITALS: BP 109/72
[2024-12-02] MEDS: NSS IV (11:09)
== END 2024-12-02 13:39 | disposition home or self-care (01) | DRG 661 ==
LOC: 4 WEST ACU 05:17
PROVIDERS: Hospitalist; Specialist; ADMITTING PHYSICIAN Internal Medicine; ATTENDING PHYSICIAN Internal Medicine; EMERGENCY PHYSICIAN Emergency Medicine; FAMILY PHYSICIAN Internal Medicine
PROC: 0TC68ZZ Extirpation of Matter from Right Ureter, Via Natural or Artificial Opening Endoscopic (ICD-10-PCS; 2024-11-30)
PROC: 0T768DZ Dilation of Right Ureter with Intraluminal Device, Via Natural or Artificial Opening Endoscopic (ICD-10-PCS; 2024-11-30)
DX: N13.2 Hydronephrosis with renal and ureteral calculous obstruction (principal); J10.1 Influenza due to other identified influenza virus with other respiratory manifestations; G25.81 Restless legs syndrome; N28.1 Cyst of kidney, acquired; Z88.0 Allergy status to penicillin; Z95.0 Presence of cardiac pacemaker
CPT/HCPCS: 74018; 74176; 76000; 80048; 80053; 81003; 81015; 82365; 83690; 85025; 87086; 87502; 90686; 96374; 96375; 96376; 99285; C1894; C2617; G0008